=== PATIENT | male | born 1970 ===

== ENCOUNTER 2018-03-17 00:05 | Emergency (ER) | payer SELFPAY ==
[2018-03-17] MEDS ORDERED: Bacitracin Ointment 30 GM TUBE TOP STA (01:48)
--- NOTE | 2018-03-17 01:48 | C.PDOC ---
History Of Present Illness 47 y/o M c no PMHx p/w scrotal bleeding x 1 day. Patient states he was in shower when he noticed that there was bleeding from his L sided scrotum. He applied a bandage but it began bleeding again later the same day. He is unsure how it began. He denies any overt trauma, fever, dysuria. Time Seen by Provider: 03/17/18 00:56 Chief Complaint (Nursing): Male Genitourinary Past Medical History Vital Signs: Last Vital Signs Temp 97.6 F 03/17/18 01:57 Pulse 73 03/17/18 01:57 Resp 14 03/17/18 01:57 BP 123/80 03/17/18 01:57 Pulse Ox 100 03/17/18 03:29 Family History: States: No Known Family Hx - Social History Hx Alcohol Use: No Hx Substance Use: No - Immunization History Hx Tetanus Toxoid Vaccination: No Hx Influenza Vaccination: No Hx Pneumococcal Vaccination: No Review Of Systems Except As Marked, All Systems Reviewed And Found Negative. Constitutional: Negative for: Fever Respiratory: Negative for: Shortness of Breath Physical Exam - Physical Exam Additional Physical Exam Comments: Gen: NAD Head: NC/AT Eyes: PERRL ENT: MMM Neck: Supple Chest: No tenderness CV: Regular rate Lungs: CTA b/l Abd: Soft, NT : Pubic hair shaved. Small bleeding wound on L sided scrotum, nontender. No erythema or discharge of pus. Back: No CVA tenderness Extremities: No edema Skin: No rash Neuro: Alert, no focal deficit ED Course And Treatment O2 Sat by Pulse Oximetry: 100 Medical Decision Making Medical Decision Making: Digital pressure applied with hemostasis achieved. Educated on use of digital pressure. Wound dressed. Disposition - Disposition Referrals: Non [facility] Provider, [Primary Care Provider] - Disposition: HOME/ ROUTINE Disposition Time: 01:48 Condition: STABLE Instructions: Wound Care Forms: [employer] (Latvian) - Clinical Impression Clinical Impression: Bleeding from wound
[2018-03-17] MEDS ORDERED: Bacitracin 500 Units/gm Oint Foilpak UD ONE (01:51)
[2018-03-17 01:58] VITALS: BP 123/80; PULSE 73; RESP 14; TEMP 97.6
[2018-03-17 03:29] VITALS: O2SAT 100
== END 2018-03-17 01:57 | disposition home or self-care (01) ==
LOC: C.ER 00:05 → SUPCPDRO 00:05 → C.ER 01:57
DX: S31.30XA Unspecified open wound of scrotum and testes, initial encounter (principal); X58.XXXA Exposure to other specified factors, initial encounter